=== PATIENT | female | born 1945 | race Caucasian/White ===

== ENCOUNTER 2017-10-05 18:00 | Outpatient (CLI) | payer MEDICARE | END 2017-10-05 18:01 | disposition home or self-care (01) | LOC: SLEEPLAB 18:00 | PROVIDERS: ATTEND Internal Medicine | DX: G47.33 Obstructive sleep apnea (adult) (pediatric) (principal); R06.81 Apnea, not elsewhere classified; R53.83 Other fatigue; I10 Essential (primary) hypertension; E66.9 Obesity, unspecified; E11.9 Type 2 diabetes mellitus without complications; R06.83 Snoring; R35.1 Nocturia; R09.89 Other specified symptoms and signs involving the circulatory and respiratory systems; R09.02 Hypoxemia | CPT/HCPCS: 95806 ==

== ENCOUNTER 2017-11-09 20:30 | Outpatient (CLI) | payer MEDICARE | END 2017-11-09 20:31 | disposition home or self-care (01) | LOC: SLEEPLAB 20:30 | PROVIDERS: ATTEND Internal Medicine | DX: G47.33 Obstructive sleep apnea (adult) (pediatric) (principal); R53.83 Other fatigue; E66.9 Obesity, unspecified; R35.1 Nocturia; I10 Essential (primary) hypertension; E11.9 Type 2 diabetes mellitus without complications; G47.36 Sleep related hypoventilation in conditions classified elsewhere; Z68.41 Body mass index [BMI] 40.0-44.9, adult | CPT/HCPCS: 95811 ==

== ENCOUNTER 2017-12-18 10:00 | Outpatient (CLI) | payer MEDICARE ==
--- NOTE | 2017-12-18 11:30 | ULT ---
RENAL ULTRASOUND: INDICATION: History of urinary tract infection. FINDINGS: The right kidney measures 10.4 x 4.6 x 5.1 cm. The left kidney measures 10.5 x 4.4 x 5.2 cm. No foc al renal lesion or hydronephrosis is evident. The prevoid bladder volume is 219 cc. The patient cou ld not empty the bladder. IMPRESSION: 1. Mild residual urine in the bladder. The patient could not void during the examination. 2. No hydronephrosis or focal renal lesion. POS: PATRICIO
== END 2017-12-18 10:01 | disposition home or self-care (01) ==
LOC: SCSULT 10:00
PROVIDERS: ATTEND Urology
DX: N39.0 Urinary tract infection, site not specified (principal)
CPT/HCPCS: 76770

== ENCOUNTER 2018-04-05 11:03 | Outpatient (CLI) | payer MEDICARE ==
--- NOTE | 2018-04-16 18:00 | MMO ---
BILATERAL DIGITAL SCREENING MAMMOGRAM: Date: 04/05/18 HISTORY: Annual digital screening mammography. FINDINGS: Comparison made to previous exam from 10/10/16. Images were also performed using computer-aided detection. Images demonstrate fibroglandular tissue seen in both breasts. No definite evidence of masses or lesi ons seen. Mammographic appearance is stable. IMPRESSION: BIRADS 1: Negative exam POS: PATRICIO
== END 2018-04-05 11:04 | disposition home or self-care (01) ==
LOC: SCSMAMMO 11:03
PROVIDERS: ATTEND Internal Medicine
DX: Z12.31 Encounter for screening mammogram for malignant neoplasm of breast (principal)
CPT/HCPCS: 77067